=== PATIENT | male | born 1950 | race Caucasian/White ===

== ENCOUNTER → 2018-11-02 05:55 | Outpatient (REF) | payer MEDICARE, SELFPAY ==
[2018-11-02 08:02] LABS: Hematocrit 35.9 % (40-54); Hemoglobin 11.3 g/dL (13.0-16.5); Mean Corp Hgb Conc 31.5 g/dL (32-36); Mean Corpuscular Hgb 31.2 pg (27.0-32.0); Mean Corpuscular Volume 99.2 fL (80-94); Mean Platelet Vol. 10.4 fl (6.2-12.0); Platelet Count 186 K/mm3 (150-450); RBC Distribution Width CV 15.8 % (11.6-14.6); RBC Distribution Width SD 57.9 fl (35.1-43.9); Red Blood Count 3.62 M/mm3 (4.6-6.2); White Blood Count 5.2 K/mm3 (4.4-11.0)
[2018-11-02 08:16] LABS: Anion Gap 4 (5-15); BUN 27 mg/dL (7-18); BUN/Creat Ratio 33.8 RATIO (10-20); Calcium,Total 8.9 mg/dL (8.5-10.1); Chloride 106 mmol/L (98-107); EST Glomerular Filtration Rate 102 mL/min (>60); Est Glom Filt Rate - Afr Amer 123 mL/min (>60); Glucose 86 mg/dL (74-106); Potassium 4.7 mmol/L (3.5-5.1); Sodium Level 144 mmol/L (136-145)
== END ==
LOC: OLS.ACH 05:55
PROVIDERS: Visit Provider Family Medicine
DX: E85.81 Light chain (AL) amyloidosis (principal)
CPT/HCPCS: 36415; 80048; 85027